=== PATIENT | female | born 1975 | race Two or more races ===

== ENCOUNTER 2016-07-14 10:15 | Emergency (ER) | payer MEDICAID ==
[~2016-07-14] VITALS: Ht 160 cm; Wt 56.0 kg
[2016-07-14] MEDS ORDERED: ACETAMINOPHEN 325MG TABLET PO STA (11:26)
[2016-07-14] MEDS ORDERED: ONDANSETRON 4MG ODT PO STA (11:26)
[2016-07-14] MEDS ORDERED: MAGNESIUM/ALUMINUM HYDROXIDE/SIMETHICONE 30ML UDC PO STA (11:26)
[2016-07-14 11:44] LABS: CLARITY URINE CLEAR (CLEAR); COLOR URINE YELLOW (YELLOW); GLUCOSE URINE NEGATIVE (NEGATIVE); KETONES URINE NEGATIVE (NEGATIVE); LEUKOCYTE ESTERASE URINE 3+ (NEGATIVE); NITRITE URINE NEGATIVE (NEGATIVE); OCCULT BLOOD URINE 1+ (NEGATIVE); PH URINE 7.5 (4.5-8.0); PROTEIN URINE TRACE (NEGATIVE); SPECIFIC GRAVITY URINE 1.019 (1.005-1.030)
[2016-07-14 11:55] LABS: BASOPHILS % 1.1 % (0.0-2.0); EOSINOPHILS % 0.9 % (0.0-5.0); HEMOGLOBIN. 13.2 g/dL (12.0-16.0); LYMPHOCYTES % 34.5 % (20.0-50.0); MEAN CORPUSCULAR HEMOGLOBIN 30.3 pg (28.0-32.0); MEAN CORPUSCULAR HGB CONC 33.9 g/dL (31.0-37.0); MEAN CORPUSCULAR VOLUME 89.6 fL (81.0-99.0); MEAN PLATELET VOLUME 9.1 fl (7.4-10.4); MONOCYTES % 5.6 % (2.0-8.0); NEUTROPHILS % 57.9 % (40.0-76.0); PLATELET 206 x1000/uL (130-400); RED BLOOD CELL COUNT 4.36 mill/uL (4.2-5.4); RED CELL DISTRIBUTION WIDTH 12.9 % (11.6-14.6); WHITE BLOOD COUNT 5.1 x1000/uL (4.5-11.0)
[2016-07-14 12:00] LABS: CHLORIDE 104 mEq/L (98-107); INDEX HEMOLYSI 1 (1-3); INDEX ICTERIC 1 (1-4); INDEX LIPEMIC 1 (1-3)
[2016-07-14 12:01] LABS: PROTHROMBIN TIME 10.3 sec
[2016-07-14 12:02] LABS: *AMPHETAMINES SCREEN URINE NEGATIVE (NEGATIVE); *BARBITURATES SCREEN URINE NEGATIVE (NEGATIVE); *BENZODIAZEPINES SCREEN URINE NEGATIVE (NEGATIVE); *COCAINE SCREEN URINE NEGATIVE (NEGATIVE); CANNABINOID URINE SCREEN NEGATIVE (NEGATIVE); ECSTASY MDMA SCREEN URINE NEGATIVE (NEGATIVE); METHADONE URINE SCREEN NEGATIVE (NEGATIVE); OPIATES URINE SCREEN NEGATIVE (NEGATIVE); PHENCYCLIDINE URINE SCREEN NEGATIVE (NEGATIVE)
[2016-07-14 12:03] LABS: WBC URINE TNTC /hpf (0-2)
[2016-07-14 12:04] LABS: BACTERIA URINE 1+
[2016-07-14 12:05] LABS: RBC URINE 0-2 /hpf (0-2)
[2016-07-14 12:06] LABS: SQUAMOUS EPITHELIAL CELL URINE 1+ /lpf (RARE/1+)
[2016-07-14 12:06] LABS: ALANINE AMINOTRANSFERASE 16 IU/L (13-61); ALBUMIN 3.7 g/dL (3.4-5.0); ANION GAP 11; CARBON DIOXIDE 28 mEq/L (21-32); LIPASE 142 IU/L (73-393); UREA NITROGEN BLOOD 8 mg/dL (7-21); eGFR > 60 mL/min (>60)
[2016-07-14 12:59] VITALS: BP 104/72
== END 2016-07-14 13:27 | disposition home or self-care (01) ==
LOC: ER 11:36
DX: R10.9 Unspecified abdominal pain (principal); R30.0 Dysuria; R35.0 Frequency of micturition; Z98.890 Other specified postprocedural states
CPT/HCPCS: 36415; 80053; 80305; 81001; 81025; 83690; 85025; 85610; 99284; J7030; Q0162; Z7610